=== PATIENT | male | born 1975 | race Caucasian/White ===

== ENCOUNTER 2020-03-24 10:37 | Outpatient (CLI) | payer OTHER, SELFPAY ==
--- NOTE | 2020-03-24 10:40 | ECG_ITS ---
Measurements Intervals [place] Rate: 60 P: 3 MA: 163 QRS: 37 QRSD: 117 T: 9 QT: 405 QTc: 407 Interpretive Statements SINUS RHYTHM INCOMPLETE RIGHT BUNDLE BRANCH BLOCK DELAYED PRECORDIAL R/S TRANSITION BASELINE ARTIFACT- I, II, III, AVL, AVF BORDERLINE ECG Electronically Signed On 03-24-2020 11:07:20 CDT by Jevon Acosta D.O.
== END 2020-03-24 10:38 | disposition home or self-care (01) ==
LOC: ANHSURGERY 10:40
PROVIDERS: PCP Internal Medicine; Visit Provider Surgery
DX: Z01.810 Encounter for preprocedural cardiovascular examination (principal); K43.2 Incisional hernia without obstruction or gangrene; F17.200 Nicotine dependence, unspecified, uncomplicated; Z01.812 Encounter for preprocedural laboratory examination
CPT/HCPCS: 36415; 86850; 86900; 86901; 93005

== ENCOUNTER 2020-03-31 00:42 | Outpatient (CLI) | payer OTHER, SELFPAY ==
[2020-03-31 17:41] LABS: SARS-CoV-2 RNA PCR Negative
== END 2020-03-31 00:43 | disposition home or self-care (01) ==
LOC: ANHCOVIDDT 00:43
PROVIDERS: PCP Internal Medicine; Visit Provider Surgery
DX: Z01.812 Encounter for preprocedural laboratory examination (principal); Z20.828 Contact with and (suspected) exposure to other viral communicable diseases
CPT/HCPCS: 87635; C9803; U0003

== ENCOUNTER 2020-04-02 01:33 | Day surgery (SDC) | payer OTHER, SELFPAY ==
[2020-03-19 15:17] VITALS: BMI 43.6
--- NOTE | 2020-04-01 13:35 | WPDANESEPPF ---
Anes - Initial Pre Proc Eval Procedure: Operation Date: 04/02/20 09:00 Proposed Procedures p Laparoscopic Incisional Hernia Repair With Mesh, Davinci Assisted - Frank Tay DO Date/Time: 04/01/20 13:35 Surgeon: Frank Tay DO Pre Op Diagnosis: Incisional Hernia Patient Data Age: 44 Gender: M Height: 1.88 m Weight: 154.22 kg Allergies Allergy/AdvReac Type Severity Reaction Status Date / Time No Known Allergies Allergy Mild Verified 03/19/20 15:17 Home Medications Medication Instructions Recorded Confirmed Type esomeprazole magnesium 40 mg 40 mg PO BID 02/05/20 03/19/20 History capsule,delayed release ECG: Date of Service: 03/24/20 Procedure(s): CA 12 lead EKG Accession Number(s): [id number] cc: ~ Measurements Intervals [place] Rate: 60 P: 3 NC: 163 QRS: 37 QRSD: 117 T: 9 QT: 405 QTc: 407 Interpretive Statements SINUS RHYTHM INCOMPLETE RIGHT BUNDLE BRANCH BLOCK DELAYED PRECORDIAL R/S TRANSITION BASELINE ARTIFACT- I, II, III, AVL, AVF BORDERLINE ECG Electronically Signed On 03-24-2020 11:07:20 CDT by Jevon Acosta D.O. Dictated By: Jevon Acosta DO 03/24/20 1126 Patient hx anesthesia problems: none Family hx anesthesia problems: none PMFSH Past Medical History Medical History (Updated 04/01/20 @ 13:36 by Isreal Kaiser MD) Agrawal's esophagus with dysplasia Morbid obesity with BMI of 45.0-49.9, adult NAFL (nonalcoholic fatty liver) Smoker Ventral hernia without obstruction or gangrene Surgical History Surgical History History of Walter-en-Y gastric bypass Family History Family History Grandparent Hypertension Cerebrovascular accident Family history of heart disease in male family member before age 55 Diabetes mellitus Father No problems noted. Mother No problems noted. Social History Social History Smoking packs per day: 1.5 Smoking cigarettes per day: 30.0 Years smoked: 25 Smoking pack-years: 37.50 Smoking status: Current every day smoker Tobacco type: cigarettes Alcohol intake: current Drinks per week: 1 Substance use: never Additional occupation/education comments: Field [employer] Spiritual care concerns: No Anes - Eval Final PreProcedure Day of Procedure 04/01/20 13:35 Patient weight: morbidly obese Heart: regular rate and rhythm Lungs: clear to auscultation and normal air movement Airway: Mallampati scale class II Neurological: alert and oriented Last oral intake: >/= 8 hours ASA classification: III Emergent: no Anesthetic plan: proceed Anesthesia type and monitoring: general ETT Informed Consent: The patient's anesthetic plan and its attendant risks and benefits were discussed with the patient/family/POA. Questions were solicited and answers provided to the satisfaction of the patient/family/POA.
[2020-04-02] VITALS (8 sets, daily range): BP systolic 98–132; BP diastolic 56–76; PULSE 61–83; RESP 12–18; TEMP 35.7–36.1; O2SAT 94–98
[2020-04-02] MEDS: LACTATED RINGERS 1,000 ML 30 ML IV CONT ×2 (07:36→11:33)
[2020-04-02] MEDS: KETOROLAC 15 MG/ML VIAL (*BKC) IV PUSH (07:37)
[2020-04-02] MEDS: ACETAMINOPHEN 500 MG TABLET 1000 MG PO (07:37)
--- NOTE | 2020-04-02 08:50 | PM.IMHP ---
H&P: HPI History of Present Illness Date/Time: 04/02/20 08:50 Chief complaint: Incisional Hernia Narrative: Donnie Noble is a 44 year old male who presents with a painful lump on his upper abdomen for the past 3 months. U/s showed fat containing hernia. He now presents for repair. Review of Systems Review of Systems: All systems reviewed & are unremarkable except as noted in HPI and below Constitutional: Constitutional: Denies chills, Denies fever(s), Denies headache(s) and Denies weight loss Eyes: Eyes: Denies change in vision ENT: Denies dizziness, Denies headache(s), Denies neck mass and Denies throat swelling Cardiovascular: Cardiovascular: Denies chest pain, Denies lightheadedness and Denies dyspnea Respiratory: Respiratory: Denies cough, Denies dyspnea and Denies wheezing Gastrointestinal: Gastrointestinal: Reports as per HPI, Denies abdominal pain, Denies change in bowel habits, Denies nausea and Denies vomiting Genitourinary: Genitourinary: Denies hematuria and Denies dysuria Musculoskeletal: Musculoskeletal: Reports as per HPI Integumentary/Breasts: Skin/Breast: Reports as per HPI Neurologic: Denies dizziness and Denies headache(s) Allergic/Immunologic: Allergic/Immunologic: Denies throat swelling and Denies wheezing PMFSH Past Medical History Medical History Agrawal's esophagus with dysplasia Morbid obesity with BMI of 45.0-49.9, adult NAFL (nonalcoholic fatty liver) Smoker Ventral hernia without obstruction or gangrene Surgical History Surgical History History of Walter-en-Y gastric bypass Family History Family History Grandparent Hypertension Cerebrovascular accident Family history of heart disease in male family member before age 55 Diabetes mellitus Father No problems noted. Mother No problems noted. Social History Social History Smoking packs per day: 1.5 Smoking cigarettes per day: 30.0 Years smoked: 25 Smoking pack-years: 37.50 Smoking status: Current every day smoker Tobacco type: cigarettes Alcohol intake: current Drinks per week: 1 Substance use: never Additional occupation/education comments: Field [employer] Spiritual care concerns: No Meds Home Medications and Allergies Home Medications Medication Instructions Recorded Confirmed Type esomeprazole magnesium 40 mg 40 mg PO BID 02/05/20 04/02/20 History capsule,delayed release Allergies Allergy/AdvReac Type Severity Reaction Status Date / Time No Known Allergies Allergy Mild Verified 04/02/20 07:59 Vital Signs Vital Signs - 24 hr 04/02/20 06:52 Temperature 35.7 C L Pulse Rate 73 Respiratory Rate 18 Blood Pressure 132/76 Pulse Oximetry 98 Exam Const: General: no acute distress and alert Orientation/consciousness: patient oriented x3 HENMT: Head: normocephalic and atraumatic Ears: hearing grossly normal bilaterally General nose exam: Normal nares present Mouth: Yes Normal oral and palatal mucosa present Eyes: Periorbital: periorbital findings normal Sclera: sclerae normal EOM: EOMs intact bilaterally Neck: Neck: normal visual inspection, no lymphadenopathy and trachea midline Chest: Chest palpation & inspection: normal inspection of the chest Resp: Effort & Inspection: normal respiratory effort Auscultation: clear to auscultation bilaterally Cardio: Jugular venous distension: no JVD Rate: regular rate Rhythm: regular rhythm Heart sounds: S1 normal heart sound present and S2 normal heart sound present Peripheral pulses: Peripheral pulses 2+ throughout GI: Inspection: normal to inspection GI Palp: Yes Soft to palpation, No Tenderness to palpation present (GI), No Guarding due to palpation present (GI), Yes Hernia pr
--- NOTE | 2020-04-02 09:06 | WPDHPUPDATE1 ---
History and Physical Update Update Date/Time: 04/02/20 09:06 History and Physical has been reviewed, including an updated exam of the patient. There are NO changes in the patient's condition. Risks, benefits, and alternatives have been discussed and questions answered. Patient agrees to proceed with procedure.
[2020-04-02] MEDS: ceFAZolin 3 GM/D5W 100 ML 100 ML IVPB (09:09)
--- NOTE | 2020-04-02 11:30 | PM.PROC ---
Procedure Note - Detailed Date of procedure: 04/02/20 Pre-op diagnosis: Incisional Hernia Post-op diagnosis: same (Reducible incisional hernia) Procedure performed: Laparoscopic reducible incisional hernia repair with Progrip mesh, da Eagle assisted Description of procedure: Procedure as well as risks, benefits, and alternatives were discussed with the patient. Written consent was obtained and placed in chart prior to procedure. Patient was brought back to surgical suite. He was placed supine on operating table. Time-out was done to confirm patient and procedure. He was then intubated by the anesthesia department. A bump was placed under his left hip, and the bed was flexed slightly to extend the space between his costal margin and iliac crest. His abdomen was prepped and draped in sterile fashion using chlorhexidine prep. A 5 millimeter incision was made in the left upper quadrant, and a 5 millimeter Optiview trocar was advanced through the abdominal layers under direct visualization. Once inside the abdominal cavity, carbon dioxide insufflation was used to create a pneumoperitoneum. His abdomen was inspected. An 8 millimeter incision was made in the left lower quadrant, and an 8 millimeter robotic trocar was placed under direct visualization. Another 8 millimeter incision was made in the left lateral abdomen, and an 8 millimeter robotic trocar was placed under direct visualization. Exparel was infiltrated along the lateral abdominal russ to perform a transversus abdominis plane block bilaterally. The 5 millimeter port was removed, the incision was extended to 12 millimeters, and a 12 millimeter air seal port was placed under direct visualization. A Raúl-Mims cone was also used to place an 0-Vicryl simple interrupted suture at this trocar site. The robotic arms were brought up to the patient's bedside and secured to the ports. The camera and instruments were inserted, and I then moved over to the robotic console and took control of the camera and instruments. After careful thorough inspection of the abdominal cavity, I began my dissection at the hernia. There was omentum contained within the hernia defect. This reduced easily and I was able to identified the hernia in the upper midline abdomen. A preperitoneal pocket was created using hook electrocautery. I then measured the hernia size. The hernia measured 2 cm x 2 cm. The fascia was closed using an 0-Stratafix running suture in a transverse fashion. A 10cm x 15cm Progrip mesh was then placed within the preperitoneal pocket. This was oriented vertically with the mesh centered on the hernia defect. The mesh was then secured to the fascia with 3-0 Vicryl simple interrupted sutures at the 4 corners. The preperitoneal pocket was then closed using 3 0 V lock running absorbable suture. The repair was inspected, and one final inspection was made around the abdominal cavity. The robotic instruments were then removed, and the robotic arms were disengaged from the trocars. The ports were then removed under direct visualization, the camera was removed, and the pneumoperitoneum was released. The 0 Vicryl transfascial suture was tied down. The skin of the incisions was then approximated using 4-0 Monocryl subcuticular suture. Exofin glue was then applied on top. The patient was then awakened from anesthesia, extubated, and transferred to recovery. Anesthesia: GETA and local (Exparel) Surgeon: Frank Tay DO Estimated blood loss (mL): 5 Drains: No Complications: No immediate complications Condition: stable Disposition: same day Findings: This is a 44-year-old man who presented with a painful bulge in his upper abdomen for the past couple months. He has a history of laparoscopic gastric bypass and the bulge was noted near 1 of his laparoscopic scars. He was previously sent for an ultrasound which showed evidence of a fat containing ventral hernia. On exam he was noted to have a hernia
[2020-04-02] MEDS: oxyCODONE HCL (*CRX) 5 MG TAB IR PO (12:50)
== END 2020-04-02 13:33 | disposition home or self-care (01) ==
PROVIDERS: PCP Internal Medicine; Visit Provider Surgery
PROC: (CPT 49654; principal; 2020-04-02 09:00)
DX: K43.2 Incisional hernia without obstruction or gangrene (principal); K76.0 Fatty (change of) liver, not elsewhere classified; Z98.84 Bariatric surgery status; F17.210 Nicotine dependence, cigarettes, uncomplicated; E66.01 Morbid (severe) obesity due to excess calories; Z68.41 Body mass index [BMI] 40.0-44.9, adult
CPT/HCPCS: 49654; S2900; A9270; C1781; C9290; J0330; J0690; J1100; J1170; J1885; J2250; J2405; J2704; J2710; J3010; J7120